=== PATIENT | male | born 1995 | race African-American/Black ===

== ENCOUNTER 2023-05-24 10:48 | Emergency (ER) | payer BC ==
[~2023-05-24] VITALS: Ht 188 cm; Wt 140.0 kg
[2023-05-24 10:52] VITALS: O2SAT 99
[2023-05-24] MEDS ORDERED: ACETAMINOPHEN 325MG TABLET PO ONE (11:45)
[2023-05-24 16:45] VITALS: BP 138/89; PULSE 87; RESP 19; TEMP 98.7
== END 2023-05-24 16:46 | disposition home or self-care (01) ==
LOC: ER 10:48
DX: S09.90XA Unspecified injury of head, initial encounter (principal); M54.50 Low back pain, unspecified; V13.9XXA Unspecified pedal cyclist injured in collision with car, pick-up truck or van in traffic accident, initial encounter; Y93.89 Activity, other specified; Y92.89 Other specified places as the place of occurrence of the external cause; Y99.8 Other external cause status
CPT/HCPCS: 99284